=== PATIENT | female | born 1970 | race Caucasian/White ===

== ENCOUNTER → 2018-12-10 | Outpatient (CLI) | payer BC ==
[~2018-12-10] MED LIST: B CO1TAB14 PO; CARV-39 PO; CHOL200024 PO; FURO20TA3 PO; HUMALOG; INSU100V13 SC; IRBE300T16 PO; IRON PO; LEVO150T5 PO; MONT10TA6 PO; NITR0.4T28 SL; ONDA4TAB13 SL; ROSU40TA PO; TIZA4TAB PO
[2018-12-10 14:35] LABS: BASOPHILS # (AUTO) 0.02 x10^3/uL (0-0.1); BASOPHILS % (AUTO) 0 % (0-1); EOSINOPHILS # (AUTO) 0.16 x10^3/uL (0-0.4); EOSINOPHILS % (AUTO) 2 % (1-7); LYMPHOCYTES # (AUTO) 2.41 x10^3/uL (1-3.4); LYMPHOCYTES % (AUTO) 31 % (22-44); MD NO; MEAN CORPUSCULAR HEMOGLOBIN 29.9 pg (27.0-34.8); MEAN CORPUSCULAR HGB CONC 33.4 g/dL (32.4-35.8); MEAN CORPUSCULAR VOLUME 89.5 fL (80-100); MONOCYTES # (AUTO) 0.79 x10^3/uL (0.2-0.8); MONOCYTES % (AUTO) 10 % (2-9); NEUTROPHILS # (AUTO) 4.44 x10^3/uL (1.8-6.8); NEUTROPHILS % (AUTO) 57 % (42-75); PLATELET COUNT 391 x10^3/uL (130-400); RED BLOOD COUNT 4.23 x10^6/uL (3.82-5.3); RED CELL DISTRIBUTION WIDTH 14.5 % (9.6-15.2)
[2018-12-10 14:42] LABS: INTERNATIONAL NORMALIZED RATIO 1.02 (0.93-1.1); PROTHROMBIN TIME 10.7 Seconds (9.6-11.5)
[2018-12-10 14:45] LABS: ALANINE AMINOTRANSFERASE 17 U/L (12-78); ANION GAP 8 mmol/L (5-15); CALCIUM 9.2 mg/dL (8.5-10.1); CHLORIDE 103 mmol/L (98-107); CREATININE 0.66 mg/dL (0.55-1.02)
[2018-12-10 14:47] LABS: ALKALINE PHOSPHATASE 96 U/L (45-117); BILIRUBIN,TOTAL 0.3 mg/dL (0.2-1.0); TOTAL PROTEIN 8.2 g/dL (6.4-8.2)
[2018-12-10 14:50] LABS: HEMOGLOBIN A1C 7.9 % (4.2-6.3)
== END | disposition home or self-care (01) ==
LOC: STAR 13:08
PROVIDERS: ATTEND Orthopaedic Surgery
DX: Z01.818 Encounter for other preprocedural examination (principal); M17.12 Unilateral primary osteoarthritis, left knee; I51.7 Cardiomegaly; K21.9 Gastro-esophageal reflux disease without esophagitis; G47.30 Sleep apnea, unspecified; Z98.890 Other specified postprocedural states
CPT/HCPCS: 36415; 80053; 83036; 85025; 85610; 85730; 87081; 87806; 93005; G0475

== ENCOUNTER 2018-12-21 05:23 | Observation (INO) | payer BC ==
[2018-12-10 15:14] VITALS: BP 122/77
[~2018-12-21] VITALS: Ht 149.9 cm; Wt 100.2 kg
[2018-12-21] MEDS ORDERED: ACETAMINOPHEN 500 MG TABLET PO ONE (06:00)
[2018-12-21] MEDS ORDERED: GABAPENTIN 300 MG CAPSULE PO ONE (06:00)
[2018-12-21] MEDS ORDERED: TRANEXAMIC ACID 100 MG/ML, 10ML ONE ×4 (06:17)
[2018-12-21] MEDS ORDERED: KETOROLAC 60 MG/2 ML ONE (06:17)
[2018-12-21] MEDS ORDERED: SODIUM CHLORIDE 0.9% 50 ML ONE (06:18)
[2018-12-21] MEDS ORDERED: EPINEPHRINE 1 MG/ML, 1ML ONE (06:18)
[2018-12-21] MEDS ORDERED: ROPIvacaine/PF 0.2%, 20 ML ONE (06:18)
[2018-12-21] MEDS: LACTATED RINGERS 1,000 ML IV SCH ×4 (06:20→17:14)
[2018-12-21] MEDS ORDERED: MIDAZOLAM 1 MG/ML, 2ML ONE (06:37)
[2018-12-21] MEDS ORDERED: FENTANYL PF 250 MCG/5ML ONE (06:37)
[2018-12-21] MEDS ORDERED: SCOPOLAMINE PATCH, 1.5MG PATCH.TD72 TD ONE (06:46)
[2018-12-21] MEDS ORDERED: HYDROmorphone 1 MG/ML, 1ML INJ IVPush PRN (07:00)
[2018-12-21] MEDS ORDERED: METOCLOPRAMIDE 5 MG/ML, 2ML IVPush PRN (07:00)
[2018-12-21] MEDS ORDERED: POLYETHYLENE GLYCOL 17 GM PACKET PO PRN (07:00)
[2018-12-21] MEDS ORDERED: SENNA/DOCUSATE TABLET PO PRN (07:00)
[2018-12-21] MEDS ORDERED: ACETAMINOPHEN 650 MG/20.3 ML UDC PO PRN (07:00)
[2018-12-21] MEDS ORDERED: SCOPOLAMINE PATCH, 1.5MG PATCH.TD72 TD SCH (07:00)
[2018-12-21] MEDS ORDERED: DEXTROSE 50%, 50ML SYRINGE IVPush PRN (07:00)
[2018-12-21] MEDS ORDERED: MAGNESIUM HYDROXIDE 8%, 30ML UDC PO PRN (07:00)
[2018-12-21] MEDS ORDERED: PROMETHAZINE 25 MG/ML, 1ML IM PRN (07:00)
[2018-12-21] MEDS ORDERED: ALUMINUM/MAG/SIMETHICONE 30 ML UDC PO PRN (07:00)
[2018-12-21] MEDS ORDERED: METOCLOPRAMIDE 10MG TABLET PO PRN (07:00)
[2018-12-21] MEDS ORDERED: DIPHENHYDRAMINE 50 MG CAPSULE PO PRN (07:00)
[2018-12-21] MEDS ORDERED: DIPHENHYDRAMINE 50 MG/ML, 1ML IVPush PRN (07:00)
[2018-12-21] MEDS ORDERED: PSYLLIUM PACKET PO PRN (07:00)
[2018-12-21] MEDS ORDERED: DEXTROSE 4 GM TAB.CHEW PO PRN (07:00)
[2018-12-21] MEDS ORDERED: ONDANSETRON 4 MG TABLET PO PRN (07:00)
[2018-12-21] MEDS ORDERED: GLUCAGON 1 MG IM PRN (07:00)
[2018-12-21] MEDS ORDERED: ONDANSETRON 2MG/ML, 2ML IV PRN ×2 (07:00→08:00)
[2018-12-21] MEDS ORDERED: METOCLOPRAMIDE 5 MG/ML, 2ML ONE (07:06)
[2018-12-21] MEDS ORDERED: ONDANSETRON 2MG/ML, 2ML ONE (07:40)
[2018-12-21] MEDS ORDERED: CEFAZOLIN 1,000 MG ONE (07:40)
[2018-12-21] MEDS ORDERED: DEXAMETHASONE 4 MG/ML, 1ML ONE (07:40)
[2018-12-21] MEDS ORDERED: LIDOCAINE-MPF 2% ,5ML ONE (07:40)
[2018-12-21] MEDS ORDERED: BUPIVACAINE/PF 0.25% ONE (07:40)
[2018-12-21] MEDS ORDERED: PROPOFOL 10 MG/ML, 20ML ONE (07:40)
[2018-12-21] MEDS ORDERED: HYDROmorphone 2 MG/ML, 1ML IVPush PRN (08:00)
[2018-12-21] MEDS ORDERED: ALBUTEROL/IPRATROPIUM 2.5MG/0.5MG, 3 ML NPPB PRN (08:00)
[2018-12-21] MEDS ORDERED: PROMETHAZINE 25 MG/ML, 1ML IV PRN (08:00)
[2018-12-21] MEDS ORDERED: MIDAZOLAM 1 MG/ML, 2ML IV PRN (08:00)
[2018-12-21] MEDS ORDERED: DIAZEPAM 5 MG/ML, 2ML IVPush PRN (08:00)
[2018-12-21] MEDS ORDERED: hydrALAzine 20 MG/ML, 1ML IV PRN (08:00)
[2018-12-21] MEDS ORDERED: MEPERIDINE/PF 25MG/0.5ML IVPush PRN (08:00)
[2018-12-21] MEDS ORDERED: FENTANYL PF 100 MCG/2ML IV PRN (08:00)
[2018-12-21] MEDS ORDERED: METOPROLOL 1 MG/ML, 5ML IV PRN (08:00)
[2018-12-21] MEDS ORDERED: OXYcodone 5 MG/5 ML ORAL.SOL UDC PO PRN (08:00)
[2018-12-21] MEDS ORDERED: DIAZEPAM 5 MG/ML, 2ML ONE (08:43)
[2018-12-21] MEDS ORDERED: OXYcodone 5 MG/5 ML ORAL.SOL UDC ONE (08:44)
[2018-12-21] MEDS: DOCUSATE 100 MG CAPSULE PO SCH ×2 (09:00→21:18)
[2018-12-21] MEDS: SODIUM CHLORIDE FLUSH 10ML SYR IVF SCH ×2 (09:00→21:17)
[2018-12-21] MEDS: RIVAROXABAN 10 MG TABLET PO SCH (09:00)
[2018-12-21] MEDS ORDERED: TRANEXAMIC ACID 1,000 MG in SODIUM CHLORIDE 0.9% 100 ML IVPB ONE (09:00)
[2018-12-21 10:10] VITALS: BP 108/74
[2018-12-21] MEDS: INSULIN REGULAR 100 UNITS/ML, 3ML VIAL SQ-INSULIN SCH ×5 (11:00→21:00)
[2018-12-21] MEDS ORDERED: NITROGLYCERIN 0.4 MG BOTTLE (25 TABS) SL PRN (11:30)
[2018-12-21] MEDS ORDERED: TIZANIDINE 4MG TABLET PO PRN (11:30)
[2018-12-21 14:00] VITALS: BP 106/60
[2018-12-21] MEDS: SODIUM CHLORIDE 0.9% 1,000 ML IV SCH (14:00)
[2018-12-21] MEDS: CEFAZOLIN PMX 1GM/50ML 50 ML IVPB SCH ×2 (16:25→23:59)
[2018-12-21] MEDS: OXYcodone IR 5MG TABLET PO PRN ×2 (17:08→21:19)
[2018-12-21] MEDS: TAMSULOSIN 0.4 MG CAP.ER.24H PO SCH (17:16)
[2018-12-21] MEDS: CARVEDILOL 25 MG TABLET PO SCH (17:16)
[2018-12-21 19:01] VITALS: BP 106/62
[2018-12-21] MEDS: ACETAMINOPHEN 325 MG TABLET PO PRN (21:18)
[2018-12-21] MEDS: GABAPENTIN 300 MG CAPSULE PO SCH (21:18)
[2018-12-21] MEDS: ATORVASTATIN 80 MG TABLET PO SCH (21:18)
[2018-12-21] MEDS: MONTELUKAST 10 MG TABLET PO SCH (21:18)
[2018-12-21] MEDS: INSULIN GLARGINE 100 UNITS/ML, PEN SQ-INSULIN SCH (22:32)
[2018-12-22 00:20] VITALS: BP 114/65
[2018-12-22] MEDS: OXYcodone IR 5MG TABLET PO PRN ×2 (01:22→09:58)
[2018-12-22] MEDS: SODIUM CHLORIDE 0.9% 1,000 ML IV SCH ×2 (03:05→16:40)
[2018-12-22 04:48] VITALS: BP 115/70
[2018-12-22] MEDS: LEVOTHYROXINE 150 MCG TABLET PO SCH (05:21)
[2018-12-22] MEDS: CARVEDILOL 25 MG TABLET PO SCH ×2 (05:21→17:29)
[2018-12-22 06:55] VITALS: BP 109/65
[2018-12-22] MEDS: INSULIN REGULAR 100 UNITS/ML, 3ML VIAL SQ-INSULIN SCH ×4 (07:50→21:17)
[2018-12-22] MEDS: SODIUM CHLORIDE FLUSH 10ML SYR IVF SCH ×2 (09:00→21:00)
[2018-12-22] MEDS: TAMSULOSIN 0.4 MG CAP.ER.24H PO SCH (09:57)
[2018-12-22] MEDS: DOCUSATE 100 MG CAPSULE PO SCH ×2 (09:57→21:15)
[2018-12-22] MEDS: IRBESARTAN 300 MG TABLET PO SCH (09:57)
[2018-12-22] MEDS: FERROUS SULFATE 325 MG TABLET PO SCH (09:57)
[2018-12-22] MEDS: RIVAROXABAN 10 MG TABLET PO SCH (09:57)
[2018-12-22 13:12] VITALS: BP 130/76
[2018-12-22 20:07] VITALS: BP 125/69
[2018-12-22] MEDS: GABAPENTIN 300 MG CAPSULE PO SCH (21:15)
[2018-12-22] MEDS: ATORVASTATIN 80 MG TABLET PO SCH (21:16)
[2018-12-22] MEDS: MONTELUKAST 10 MG TABLET PO SCH (21:16)
[2018-12-22] MEDS: INSULIN GLARGINE 100 UNITS/ML, PEN SQ-INSULIN SCH (21:17)
[2018-12-22] MEDS ORDERED: DIAZEPAM 5 MG/ML, 2ML IV PRN (22:30)
[2018-12-22] MEDS ORDERED: DIAZEPAM 5 MG TABLET PO PRN (22:30)
[2018-12-23 01:30] VITALS: BP 125/61
[2018-12-23] MEDS: SODIUM CHLORIDE 0.9% 1,000 ML IV SCH (06:00)
[2018-12-23 06:45] VITALS: BP 143/82
[2018-12-23] MEDS: CARVEDILOL 25 MG TABLET PO SCH (06:47)
[2018-12-23] MEDS: LEVOTHYROXINE 150 MCG TABLET PO SCH (06:47)
[2018-12-23] MEDS: INSULIN REGULAR 100 UNITS/ML, 3ML VIAL SQ-INSULIN SCH ×2 (07:00→11:22)
[2018-12-23] MEDS: ACETAMINOPHEN 325 MG TABLET PO PRN ×2 (08:46→13:29)
[2018-12-23] MEDS: OXYcodone IR 5MG TABLET PO PRN ×2 (08:47→13:30)
[2018-12-23] MEDS: IRBESARTAN 300 MG TABLET PO SCH (08:47)
[2018-12-23] MEDS: FERROUS SULFATE 325 MG TABLET PO SCH (08:47)
[2018-12-23] MEDS: TAMSULOSIN 0.4 MG CAP.ER.24H PO SCH (08:47)
[2018-12-23] MEDS: RIVAROXABAN 10 MG TABLET PO SCH (08:47)
[2018-12-23] MEDS: DOCUSATE 100 MG CAPSULE PO SCH (08:47)
[2018-12-23] MEDS: GABAPENTIN 300 MG CAPSULE PO SCH ×2 (08:47→15:49)
[2018-12-23] MEDS: SODIUM CHLORIDE FLUSH 10ML SYR IVF SCH (08:51)
[2018-12-23 13:09] VITALS: BP 113/68
== END 2018-12-23 16:50 | disposition home or self-care (01) ==
LOC: OR 05:23 → 4NOR 10:03 → OR 19:33 → 4NOR 12-23 13:25 → DCLOUNGE 12-23 16:43
PROVIDERS: ADMIT Orthopaedic Surgery; ATTEND Orthopaedic Surgery
DX: M17.12 Unilateral primary osteoarthritis, left knee (principal); Z88.6 Allergy status to analgesic agent; Z88.8 Allergy status to other drugs, medicaments and biological substances
CPT/HCPCS: 27447; 36415; 73560; 82962; 85014; 85018; 96365; 96366; 96372; 96375; 97110; 97116; 97162; 97166; 97530; C1713; C1776; G0378; J0171; J0690; J1100; J1200; J1815; J2250; J2405; J2704; J2765; J2795; J3010; J3360; J3490; J7030; J7120; J1885

== ENCOUNTER 2019-02-08 05:54 | Day surgery (SDC) | payer BC ==
[~2019-02-08] VITALS: Ht 149.9 cm; Wt 59.7 kg
[2019-02-08 06:57] VITALS: BP 134/79
== END 2019-02-08 09:05 | disposition home or self-care (01) ==
LOC: OUT 05:54
PROVIDERS: ATTEND Orthopaedic Surgery
DX: T84.82XA Fibrosis due to internal orthopedic prosthetic devices, implants and grafts, initial encounter (principal); E11.9 Type 2 diabetes mellitus without complications; Y83.8 Other surgical procedures as the cause of abnormal reaction of the patient, or of later complication, without mention of misadventure at the time of the procedure
CPT/HCPCS: 27570; 36415; 80053; 82962; 93005; J2704; J3010; J7120

== ENCOUNTER → 2020-03-02 | Outpatient (CLI) | payer BC ==
[~2020-03-02] MED LIST changes: +FURO-92 PO; +GABA600T7 PO; +HUMALOG INSULIN PUMP; -IRBE300T16 PO; +IRBE300T8 PO; +POTA20TA89 PO; -TIZA4TAB PO; +TIZA4TAB2 PO
== END | disposition home or self-care (01) ==
LOC: RAD 13:18
PROVIDERS: ATTEND Nurse Practitioner Family
DX: M50.222 Other cervical disc displacement at C5-C6 level (principal); M47.812 Spondylosis without myelopathy or radiculopathy, cervical region; M48.02 Spinal stenosis, cervical region; R29.898 Other symptoms and signs involving the musculoskeletal system; M25.78 Osteophyte, vertebrae; M40.292 Other kyphosis, cervical region
CPT/HCPCS: 70551; 72141